=== PATIENT | female | born 1970 | race Caucasian/White ===

== ENCOUNTER 2016-10-17 15:15 | Emergency (ER) | payer BC ==
[2016-10-17 16:54] VITALS: RESP 18
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
[2016-10-17] MEDS ORDERED: HYDROcodone/APAP 5-325MG 1 EACH TAB PO STA (17:29)
[2016-10-17 17:38] VITALS: BP 108/74; PULSE 93; TEMP 97
== END 2016-10-17 17:43 | disposition home or self-care (01) ==
LOC: EC 15:15
DX: F07.81 Postconcussional syndrome (principal); G44.309 Post-traumatic headache, unspecified, not intractable; F10.129 Alcohol abuse with intoxication, unspecified; J44.9 Chronic obstructive pulmonary disease, unspecified; F41.9 Anxiety disorder, unspecified; F17.200 Nicotine dependence, unspecified, uncomplicated; Z79.51 Long term (current) use of inhaled steroids; Z79.899 Other long term (current) drug therapy; Z88.8 Allergy status to other drugs, medicaments and biological substances; Y09 Assault by unspecified means
CPT/HCPCS: 99284

== ENCOUNTER → 2016-11-01 | Outpatient (CLI) | payer BC ==
--- NOTE | 2016-11-01 15:18 | XR ---
Orbits HISTORY: Macular edema, left orbital fracture No comparisons 3 views of the orbits No evident displaced fracture. No radiopaque foreign body. Bone mineralization is maintained. Paranas al sinuses are well aerated as visualized. Questionable distortion of the nasal bones, correlate for history of trauma, there is nasal septal deviation. IMPRESSION: Orbital fracture not evident on plain film, CT scan or MRI could be performed for increas ed sensitivity.
== END | disposition home or self-care (01) ==
LOC: RADXRMAIN 13:57
PROVIDERS: ATTEND Optometrist
DX: S02.82XA Fracture of other specified skull and facial bones, left side, initial encounter for closed fracture (principal)
CPT/HCPCS: 70200

== ENCOUNTER 2017-01-07 21:40 | Emergency (ER) | payer BC ==
[2017-01-07 21:58] VITALS: BP 135/78; PULSE 107; RESP 20; TEMP 98.1
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
--- NOTE | 2017-01-07 22:40 | XR ---
EXAM: Single view of the pelvis. INDICATION: 46-year-old female with pain. COMPARISON: 06/07/2016 FINDINGS: No fractures or dislocations are seen about the hips. Postsurgical changes of the lower lumbosacral spine with posterior discectomy and fusion at L5-S1. No evidence of hardware complication. Limited visualization of the sacrum due to bowel gas on the AP view. Phleboliths are present in the pelvis. Suture material projects over the left paracentral pelvis. Bone mineralization and joint spaces are preserved. IMPRESSION: No acute osseous abnormalities or significant change since comparison.
--- NOTE | 2017-01-07 22:44 | XR ---
EXAM: XR SACRUM/COCCYX, 3 views INDICATION: 46-year-old female with pain. COMPARISON: 06/07/2016. FINDINGS: 3 views of the sacrum and coccyx are obtained. Bony structures are intact. Evaluation of the sacrum is limited on AP view due to overlying bowel gas. No evidence of fracture. Postsurgical change of lower lumbar spine with posterior approach L5-S1 fusion and discectomy. No evidence of hardware complication. Phleboliths are present in the pelvis. Bone mineralization is within normal limits. IMPRESSION: No acute fracture.
== END 2017-01-07 23:00 | disposition home or self-care (01) ==
LOC: EC 21:40
DX: S70.01XA Contusion of right hip, initial encounter (principal); J44.9 Chronic obstructive pulmonary disease, unspecified; F17.200 Nicotine dependence, unspecified, uncomplicated; Z88.8 Allergy status to other drugs, medicaments and biological substances; Z79.51 Long term (current) use of inhaled steroids; Z79.1 Long term (current) use of non-steroidal anti-inflammatories (NSAID); X50.9XXA Other and unspecified overexertion or strenuous movements or postures, initial encounter
CPT/HCPCS: 72170; 72220; 99283